=== PATIENT | male | born 1980 | race Caucasian/White ===

== ENCOUNTER 2016-11-15 07:23 | Emergency (ER) | payer BC, OTHER, SELFPAY ==
[~2016-11-15] VITALS: Ht 175.3 cm; Wt 97.5 kg
[2016-11-15 09:50] VITALS: BP 148/98
== END 2016-11-15 09:56 | disposition home or self-care (01) ==
LOC: M ED 08:09
DX: L02.215 Cutaneous abscess of perineum (principal); F17.200 Nicotine dependence, unspecified, uncomplicated; Z88.1 Allergy status to other antibiotic agents

== ENCOUNTER 2016-12-14 04:20 | Emergency (ER) | payer BC ==
[~2016-12-14] VITALS: Ht 175.3 cm; Wt 97.7 kg
[2016-12-14 04:25] VITALS: BP 129/77
== END 2016-12-14 05:02 | disposition left against medical advice (07) ==
LOC: M ED 04:20
DX: K62.5 Hemorrhage of anus and rectum (principal); Z53.29 Procedure and treatment not carried out because of patient's decision for other reasons

== ENCOUNTER 2017-01-06 05:08 | Emergency (ER) | payer BC ==
[~2017-01-06] VITALS: Ht 177.8 cm; Wt 97.7 kg
[2017-01-06 05:21] VITALS: BP 132/89
[2017-01-06] MEDS ORDERED: OXYC1TAB23 PO (05:30)
[2017-01-06] MEDS ORDERED: ALEV220T26 PO (05:30)
[2017-01-06] MEDS ORDERED: KETOROLAC 60 MG/2 ML VIAL (J1885) IM ONE (06:30)
[2017-01-06] MEDS ORDERED: CYCLOBENZAPRINE 10 MG TAB PO ONE (06:30)
[2017-01-06] MEDS ORDERED: NAPR500T PO (06:34)
[2017-01-06] MEDS ORDERED: CYCL10TA PO (06:34)
== END 2017-01-06 06:55 | disposition home or self-care (01) ==
LOC: M ED 05:08
DX: M62.830 Muscle spasm of back (principal); F41.9 Anxiety disorder, unspecified; M51.9 Unspecified thoracic, thoracolumbar and lumbosacral intervertebral disc disorder
CPT/HCPCS: 96372; 99282; J1885

== ENCOUNTER 2017-04-30 07:06 | Emergency (ER) | payer BC ==
[~2017-04-30] VITALS: Ht 175.3 cm; Wt 97.7 kg
[~2017-04-30 07:06] MED LIST: ALEV220T26 PO; CYCL10TA PO; NAPR500T PO; OXYC1TAB23 PO
[2017-04-30 08:26] LABS: BASO # 0.1 10^3/uL (0.0-0.2); BASO % 0.6 % (0.0-1.0); EOS # 0.2 10^3/uL (0.0-0.50); EOS % 1.7 % (0.0-3.0); IMMATURE GRANULOCYTE % 0.3 % (0-0); LYMPH # 2.8 10^3/uL (1.5-4.5); LYMPH % 27.1 % (24.0-44.0); MEAN CORPUSCULAR HEMOGLOBIN 29.8 pg (27.0-33.0); MEAN CORPUSCULAR HGB CONC 34.1 g/dl (32.0-36.5); MEAN CORPUSCULAR VOLUME 87.6 fl (80.0-96.0); NEUTROPHILS # 6.2 10^3/uL (1.8-7.7); NEUTROPHILS % 60.3 % (36.0-66.0); PLATELET COUNT, AUTOMATED 381 10^3/uL (150-450); RED CELL DISTRIBUTION WIDTH 12.5 % (11.5-14.5); WHITE BLOOD COUNT 10.2 10^3/uL (4.0-10.0)
[2017-04-30 08:50] LABS: ALBUMIN 3.9 GM/DL (3.2-5.2); ALBUMIN/GLOBULIN RATIO 1.05 (1.00-1.93); ALKALINE PHOSPHATASE 82 U/L (45-117); ALT/SGPT 72 U/L (12-78); ANION GAP 7 MEQ/L (8-16); AST/SGOT 22 U/L (7-37); BILIRUBIN,DIRECT 0.2 MG/DL (0.0-0.2); BILIRUBIN,TOTAL 0.6 MG/DL (0.2-1.0); BLOOD UREA NITROGEN 14 MG/DL (7-18); CALCIUM LEVEL 9.2 MG/DL (8.5-10.1); CARBON DIOXIDE LEVEL 30 MEQ/L (21-32); CHLORIDE LEVEL 102 MEQ/L (98-107); CREATININE FOR GFR 0.97 MG/DL (0.70-1.30); GLOMERULAR FILTRATION RATE > 60.0 (>60); GLUCOSE, FASTING 109 MG/DL (70-105); POTASSIUM SERUM 3.8 MEQ/L (3.5-5.1); SODIUM LEVEL 139 MEQ/L (136-145); TOTAL PROTEIN 7.6 GM/DL (6.4-8.2)
[2017-04-30] MEDS ORDERED: ISOVUE-370 76% 100ML VIAL (Q9967) As Ordered ONE (09:06)
--- NOTE | 2017-04-30 09:51 | REP ---
Clinical: Perirectal abscess. Technique: Axial contrast enhanced images from the lower abdomen through the pubic symphysis using 100 ml Isovue 370 intravenous contrast material with coronal and sagittal re-formations. Comparison: 12/09/2014. Findings: Visualized portions of the enteric system are unremarkable and without evidence for obstruction or acute inflammatory process. Scattered sigmoid diverticula noted without acute diverticulitis. The rectosigmoid and rectum/perirectal region demonstrates normal surrounding fat without infiltration, fluid collection or abscess. Normal terminal ileum and appendix identified in the right lower quadrant. Normal bladder and prostate/seminal vesicles. No free air. No adenopathy. Vasculature appears normal. Surrounding musculoskeletal structures are intact. Impression: Normal contrast enhanced CT of the pelvis. No acute inflammatory process. No perirectal the collection abscess or infectious/inflammatory process noted. Signed by Nikita Darby MD 04/30/2017 09:42 A
[2017-04-30] MEDS ORDERED: AUGM500T34 PO (09:54)
[2017-04-30 10:09] VITALS: BP 126/60
[2017-04-30] MEDS ORDERED: NORCOTAB PO (21:03)
== END 2017-04-30 10:11 | disposition home or self-care (01) ==
LOC: M ED 07:06
DX: R21 Rash and other nonspecific skin eruption (principal)
CPT/HCPCS: 36415; 72193; 80048; 80076; 85025; 99284; Q9967

== ENCOUNTER 2017-04-30 18:33 | Emergency (ER) | payer BC ==
[~2017-04-30] VITALS: Ht 175.3 cm; Wt 100.0 kg
[~2017-04-30 18:33] MED LIST changes: +AUGM500T34 PO
[2017-04-30] MEDS ORDERED: NORCOTAB PO (21:03)
[2017-04-30] MEDS ORDERED: NORCO 5/325MG TABLET (BULK FOR ED) PO ONE (21:15)
[2017-04-30 21:39] VITALS: BP 135/65
== END 2017-04-30 21:40 | disposition home or self-care (01) ==
LOC: M ED 18:33
DX: K65.1 Peritoneal abscess (principal); Z87.2 Personal history of diseases of the skin and subcutaneous tissue; F41.9 Anxiety disorder, unspecified; F17.200 Nicotine dependence, unspecified, uncomplicated; Z79.899 Other long term (current) drug therapy; Z88.1 Allergy status to other antibiotic agents

== ENCOUNTER → 2017-05-26 | Outpatient (REF) | payer BC ==
[~2017-05-26] MED LIST changes: +NORCOTAB PO
== END ==
LOC: M SFHCLERA 15:53
PROVIDERS: ATTEND Physician Assistant
DX: L02.415 Cutaneous abscess of right lower limb (principal)

== ENCOUNTER 2017-08-05 03:53 | Emergency (ER) | payer BC | END 2017-08-05 05:12 | disposition left against medical advice (07) | LOC: M ED 03:53 | DX: Z53.29 Procedure and treatment not carried out because of patient's decision for other reasons (principal) ==

== ENCOUNTER → 2018-08-07 | Outpatient (CLI) | payer OTHER ==
[~2018-08-07] MED LIST changes: +BACT800T5 PO; +HYDR50TA70 PO; +IBUP80TA PO; +MELO7.5T7 PO; +NAPR-50 PO; -NAPR500T PO; +PROHANCE 279.3MG/ML 15ML VIAL (A9576) As Ordered ONE; +PROHANCE 279.3MG/ML 5ML VIAL (A9576) As Ordered ONE
--- NOTE | 2018-08-08 10:24 | REP ---
MRI PELVIS WITHOUT FOLLOWED WITH CONTRAST: 08/07/2018. Clinical history: Rectal abscess, anal fistula. Comparison: CT 04/30/2017, 12/09/2014. Technique: Sagittal T2 fat suppressed, axial T1 with fat suppressed T2 and coronal T1 with T2 STIR sequence performed. Axial fat suppressed T1 sequences followed by infusion of 19 ml of ProHance and T1 fat suppressed coronal and axial images. Findings: I do not see any definite pararectal abscess. A subtle linear hyperintense signal focus on the T2 and contrast-enhanced T1 images extending from the anterior aspect of the anal verge region that could be a fistulous tract. I do not see any fluid collection or extension above the peritoneum. There is no pelvic free fluid. Bladder under filled. No wall thickening allowing for the degree of filling. No pelvic lymphadenopathy or mass. Marrow signal in the visualized lower lumbar spine vertebral levels, sacrum, pelvis and hips unremarkable. Pelvic musculature is unremarkable. I see no inflammatory changes of the small bowel loops of colon is collapsed from the distal left colon through sigmoid to the rectum. Impression: 1. There is no visible evidence for abscess. Suspected fistulas tract seen along the peroneal extending anteriorly from the noon position. No other finding. Electronically Signed by Harry Casey MD 08/08/2018 07:47 P
== END ==
LOC: M RAD 12:40
PROVIDERS: ATTEND Internal Medicine Gastroenterology
DX: K61.1 Rectal abscess (principal); K60.3 Anal fistula
CPT/HCPCS: 72197; A9576

== ENCOUNTER → 2018-12-02 | Outpatient (CLI) | payer OTHER ==
--- NOTE | 2018-11-13 13:40 | REP ---
Clinical: History of anorectal fistula. Technique: Single supine view of the abdomen and pelvis. Findings: Bowel gas pattern is nonspecific. No evidence for obstruction or perforation. No organomegaly. No abnormal calcifications. Skeletal structures intact. Impression: Nonspecific bowel gas pattern without evidence for obstruction or perforation. Electronically Signed by Nikita Darby MD 11/13/2018 01:30 P
[~2018-12-02] MED LIST changes: +E-Z-GAS II EFFERVESCENT PACKET (SODIUM BICARB./CITRIC ACID/SIMETHICONE) As Ordered ONE; +E-Z-HD 98% w/w 340GM SUSP BTL As Ordered ONE; +E-Z-PAQUE 96% w/w SUSP 176GM BTL As Ordered ONE; +HYDR-3715 PO; +MELO15TA28 PO; -NAPR-50 PO; +NAPR-837 PO; -NORCOTAB PO; -PROHANCE 279.3MG/ML 15ML VIAL (A9576) As Ordered ONE; -PROHANCE 279.3MG/ML 5ML VIAL (A9576) As Ordered ONE; +TIZA4TAB4 PO
--- NOTE | 2018-12-02 16:27 | REP ---
Upper GI Air Contrast with SBFT The procedure was performed by BUDDY Jerez, under the the direct supervision of Dr. Lim. The images were reviewed with Dr. Lim. The squilgeer film shows no organomegaly or pathological masses. The intestinal gas pattern appears normal. Liquid barium and gas producing crystals were given in the erect position as well as liquid barium in the prone position in order to perform a double contrast upper GI examination. The oral and pharyngeal stages of deglutition were unremarkable. Esophageal transport is efficient and there is no esophagitis, stricture, or mucosal ring noted. There is no hiatal hernia. Gastroesophageal reflux is visualized to the level of the mina. The stomach sauceda are normally outlined. The rugal folds are smooth and regular. There is no gastritis, neoplasm, or ulcer disease noted. The duodenal sauceda are normally outlined. The mucosal folds are smooth and regular. There is no duodenitis, peptic ulcer disease, or neoplasm noted. The visualized portion of the proximal small bowel appears normal in course and caliber. The barium column was followed through the small bowel to the level of the terminal ileum. Small bowel transit time was approximately 30 minutes. During fluoroscopy gentle palpation shows all loops are freely mobile and pliable. There are no fixed or angulated loops. The small bowel mucosal pattern is normal in course and caliber. There is no transition to set suggest a partial small-bowel obstruction. Spot filming of the terminal ileum shows it to be unremarkable. Impression: 1. Gastroesophageal reflux. 1.6 minutes of fluoroscopy time was utilized for this procedure. Reviewed by BUDDY Rider 12/02/2018 03:12 P Electronically Signed by Greg Lim MD 12/02/2018 04:18 P
[2018-12-04 14:20] LABS: CHROMOGRANIN A 1 nmol/L (0-5); GASTRIN 13 pg/mL (0-115)
== END ==
LOC: M RAD 11-13 10:15
PROVIDERS: ATTEND Internal Medicine Gastroenterology
DX: K60.5 Anorectal fistula (principal)

== ENCOUNTER 2018-12-05 06:23 | Day surgery (SDC) | payer OTHER ==
[~2018-12-05] VITALS: Ht 175.3 cm; Wt 97.9 kg
[~2018-12-05 06:23] MED LIST changes: -E-Z-GAS II EFFERVESCENT PACKET (SODIUM BICARB./CITRIC ACID/SIMETHICONE) As Ordered ONE; -E-Z-HD 98% w/w 340GM SUSP BTL As Ordered ONE; -E-Z-PAQUE 96% w/w SUSP 176GM BTL As Ordered ONE
[2018-12-05] MEDS ORDERED: NS 1,000 ML IV ONE (06:30)
[2018-12-05] MEDS ORDERED: PROPOFOL 200 MG/20 ML VIAL As Ordered ONE ×2 (07:48→07:58)
--- NOTE | 2018-12-05 08:08 | ROOR ---
Patient Name: Jerry Henley Procedure Date: 12/05/2018 7:32 AM Date of : 1980 Age: 38 Room: [facility] Gender: Male Note Status: Finalized Procedure: Colonoscopy Indications: Abnormal MRI of the GI tract, Exclusion of Crohn's disease, Anorectal fistula Providers: Bernardo VALDEZ MD Referring MD: CHIP RUVALCABA MD Requesting Provider: Medicines: Monitored Anesthesia Care Complications: No immediate complications. Procedure: Pre-Anesthesia Assessment: - The heart rate, respiratory rate, oxygen saturations, blood pressure, adequacy of pulmonary ventilation, and response to care were monitored throughout the procedure. The Colonoscope was introduced through the anus and advanced to 15 cm into the ileum. The colonoscopy was performed without difficulty. The patient tolerated the procedure well. The quality of the bowel preparation was fair. Findings: The perianal and digital rectal examinations were normal. The colon (entire examined portion) appeared normal. The terminal ileum appeared normal. Biopsies were taken with a cold forceps in the rectum, in the sigmoid colon, in the entire colon and in the terminal ileum for histology. Impression: - Preparation of the colon was fair. - The entire colon is normal. - The examined portion of the ileum was normal. - Biopsies were taken with a cold forceps for histology in the rectum, in the sigmoid colon, in the entire colon and in the terminal ileum. Recommendation: - As you have not had recurrence of symptoms for several months, would continue to observe clinical course for now. Bernardo aVldez MD Bernardo VALDEZ MD 12/05/2018 8:08:48 AM Electronically signed by Bernardo VALDEZ MD Number of Addenda: 0 Note Initiated On: 12/05/2018 7:32 AM Estimated Blood Loss: Estimated blood loss: none.
[2018-12-05 08:20] VITALS: BP 102/65
== END 2018-12-05 08:31 | disposition home or self-care (01) ==
LOC: M OPP 06:23
PROVIDERS: ATTEND Internal Medicine Gastroenterology
DX: R93.3 Abnormal findings on diagnostic imaging of other parts of digestive tract (principal); K60.5 Anorectal fistula; Z79.899 Other long term (current) drug therapy; Z88.2 Allergy status to sulfonamides

== ENCOUNTER → 2018-12-15 | Outpatient (REF) | payer MEDICAID | LOC: M SFHCLERA 16:56 | PROVIDERS: ATTEND Nurse Practitioner Family | DX: J02.9 Acute pharyngitis, unspecified (principal) ==

== ENCOUNTER → 2019-12-05 | Outpatient (REF) | payer MEDICAID, OTHER ==
[~2019-12-05] MED LIST changes: +CYCL-707 PO; -CYCL10TA PO
== END ==
LOC: M LAB REF 17:36
PROVIDERS: ATTEND Physician Assistant
DX: L08.9 Local infection of the skin and subcutaneous tissue, unspecified (principal)

== ENCOUNTER → 2019-12-05 | Outpatient (REF) | payer MEDICAID, OTHER | LOC: M SFHCLERA 14:49 | PROVIDERS: ATTEND Physician Assistant | DX: L08.9 Local infection of the skin and subcutaneous tissue, unspecified (principal) ==

== ENCOUNTER 2020-02-27 21:05 | Emergency (ER) | payer OTHER ==
[~2020-02-27] VITALS: Ht 175.3 cm; Wt 100.0 kg
[2020-02-27 21:05] VITALS: BP 128/81
== END 2020-02-27 21:15 | disposition left against medical advice (07) ==
LOC: M ED 21:05
DX: Z53.21 Procedure and treatment not carried out due to patient leaving prior to being seen by health care provider (principal)

== ENCOUNTER → 2020-04-25 | Outpatient (CLI) | payer OTHER, MEDICAID ==
[2020-04-25 16:31] LABS: BASO # 0.1 10^3/uL (0.0-0.2); BASO % 0.5 % (0.0-1.0); EOS % 0.3 % (0.0-3.0); HEMOGLOBIN 14.5 g/dl (13.5-17.5); LYMPH # 2.8 10^3/uL (1.5-5.0); LYMPH % 25.1 % (24.0-44.0); MEAN CORPUSCULAR HGB CONC 33.7 g/dl (32.0-36.5); MONO # 0.8 10^3/uL (0.0-0.8); MONO % 7.2 % (0.0-5.0); NEUTROPHILS # 7.3 10^3/uL (1.5-8.5); NEUTROPHILS % 66.4 % (36.0-66.0); PLATELET COUNT, AUTOMATED 361 10^3/uL (150-450)
[2020-04-25 16:56] LABS: COMPLEMENT C3 130 MG/DL (90-180); COMPLEMENT C4 49 MG/DL (10-40); RHEUMATOID FACTOR QUANT < 10.0 IU/ML (<15.0)
[2020-04-25 16:57] LABS: THYROGLOBULIN ANTIBODY < 15.0 U/ML (<60.0); THYROID PEROXIDASE ANTIBODY 44.7 U/ML (<60.0)
[2020-04-25 16:59] LABS: TOTAL T3 147.9 NG/DL (60.0-181.0)
[2020-04-25 17:12] LABS: ERYTHROCYTE SEDIMENTATION RATE 12 mm/hr (0-15)
== END ==
LOC: M WUC 14:15
PROVIDERS: ATTEND Allergy & Immunology Allergy
DX: L50.1 Idiopathic urticaria (principal); R19.7 Diarrhea, unspecified

== ENCOUNTER 2023-12-12 10:45 | Outpatient (RCR) | payer OTHER ==
[~2023-12-12 10:45] MED LIST changes: +TIZA10TA PO; -TIZA4TAB4 PO
== END 2023-12-15 ==
LOC: M PT 10:45
PROVIDERS: ATTEND Orthopaedic Surgery
DX: M48.56XA Collapsed vertebra, not elsewhere classified, lumbar region, initial encounter for fracture (principal)

== ENCOUNTER 2024-01-10 12:32 | Outpatient (RCR) | payer OTHER | END 2024-01-15 | LOC: M PT 12:32 | PROVIDERS: ATTEND Orthopaedic Surgery | DX: M48.56XA Collapsed vertebra, not elsewhere classified, lumbar region, initial encounter for fracture (principal) ==

== ENCOUNTER 2024-01-27 10:45 | Outpatient (RCR) | payer OTHER | END 2024-02-15 | LOC: M PT 10:45 | PROVIDERS: ATTEND Orthopaedic Surgery | DX: M48.56XA Collapsed vertebra, not elsewhere classified, lumbar region, initial encounter for fracture (principal) ==

== ENCOUNTER → 2025-01-21 | Outpatient (CLI) | payer OTHER | LOC: M LAB 15:20 | PROVIDERS: ATTEND Allergy & Immunology | DX: L50.9 Urticaria, unspecified (principal) ==

== ENCOUNTER 2025-01-28 09:15 | Outpatient (RCR) | payer OTHER | END 2025-02-14 | LOC: M PT 09:15 | PROVIDERS: ATTEND Internal Medicine | DX: L50.9 Urticaria, unspecified (principal) ==

== ENCOUNTER → 2025-01-28 | Outpatient (CLI) | payer OTHER ==
[2025-01-28 11:32] LABS: BASO # 0.1 10^3/uL (0.0-0.2); BASO % 0.7 % (0.0-1.0); EOS # 0.2 10^3/uL (0.0-0.5); EOS % 1.9 % (0.0-3.0); LYMPH # 2.1 10^3/uL (1.5-5.0); LYMPH % 25.9 % (24.0-44.0); MONO # 1.0 10^3/uL (0.0-0.8); MONO % 12.0 % (2.0-8.0); NEUTROPHILS # 4.9 10^3/uL (1.5-8.5); NEUTROPHILS % 59.4 % (36.0-66.0); PLATELET COUNT, AUTOMATED 351 10^3/uL (150-450)
[2025-01-28 11:56] LABS: ALT/SGPT 16 U/L (7.0-40); AST/SGOT 13 U/L (<34); CALCIUM LEVEL 9.3 MG/DL (8.5-10.1); CARBON DIOXIDE LEVEL 31 MMOL/L (20-31); CHLORIDE LEVEL 104 MMOL/L (98-107); CREATININE FOR GFR 0.91 MG/DL (0.70-1.30); GLOMERULAR FILTRATION RATE > 90.0 (>60); POTASSIUM SERUM 4.6 MMOL/L (3.5-5.1); SODIUM LEVEL 143 MMOL/L (136-145)
== END ==
LOC: M LAB 11:01
PROVIDERS: ATTEND Allergy & Immunology
DX: R10.84 Generalized abdominal pain (principal); R53.81 Other malaise

== ENCOUNTER → 2025-03-31 | Outpatient (REF) | payer OTHER ==
[2025-03-31 19:17] LABS: BASO # 0.1 10^3/uL (0.0-0.2); BASO % 0.6 % (0.0-1.0); EOS # 0.2 10^3/uL (0.0-0.5); EOS % 1.6 % (0.0-3.0); LYMPH # 2.5 10^3/uL (1.5-5.0); LYMPH % 26.8 % (24.0-44.0); MONO # 1.0 10^3/uL (0.0-0.8); MONO % 10.5 % (2.0-8.0); NEUTROPHILS # 5.6 10^3/uL (1.5-8.5); NEUTROPHILS % 60.3 % (36.0-66.0); PLATELET COUNT, AUTOMATED 424 10^3/uL (150-450)
[2025-03-31 19:23] LABS: ALT/SGPT 31 U/L (7.0-40); AST/SGOT 19 U/L (<34); C REACTIVE PROTEIN QUANTITATIV 3.07 MG/DL (<1.0); CALCIUM LEVEL 10.0 MG/DL (8.5-10.1); CARBON DIOXIDE LEVEL 29 MMOL/L (20-31); CHLORIDE LEVEL 104 MMOL/L (98-107); CREATININE FOR GFR 0.81 MG/DL (0.70-1.30); GLOMERULAR FILTRATION RATE > 90.0 (>60); POTASSIUM SERUM 4.5 MMOL/L (3.5-5.1); SODIUM LEVEL 141 MMOL/L (136-145)
[2025-03-31 19:26] LABS: TOTAL 25(OH) VITAMIN D 24.0 NG/ML (20.0-100.0)
[2025-03-31 19:28] LABS: ERYTHROCYTE SEDIMENTATION RATE 74 mm/hr (0-15)
== END ==
LOC: M SFHCRHEU 15:09
PROVIDERS: ATTEND Internal Medicine Rheumatology
DX: M45.0 Ankylosing spondylitis of multiple sites in spine (principal)